=== PATIENT | female | born 1995 | race Caucasian/White ===

== ENCOUNTER 2017-07-07 10:08 | Emergency (ER) | payer SELFPAY ==
[~2017-07-07] VITALS: Ht 165.1 cm; Wt 68.1 kg
[2017-07-07 10:09] VITALS: Ht 165.1 cm; Wt 68.1 kg
[2017-07-07] MEDS ORDERED: IBUPROFEN 600 MG TAB PO ONE (11:30)
[2017-07-07] MEDS ORDERED: HYDROCODONE/APAP (5/325) TAB PO ONE (11:30)
--- NOTE | 2017-07-07 12:16 | RADRPT ---
PROCEDURE: XR Right Ankle CLINICAL INDICATION: Twisted, pain, swelling TECHNIQUE: Standard 3 view radiographs were submitted. COMPARISON: None FINDINGS: Osseous structures: Well mineralized and intact with no fracture or destructive process identified. Joint spaces: Well maintained with no significant erosions or spurring evident. Soft tissues: There is mild soft tissue swelling seen about the lateral malleolus compatible with a sprain. IMPRESSION: Right ankle sprain. Physician Yanely Date Time Electronically viewed and signed by Janak Nathan Physician on 07/07/2017 12:16 RH/
[2017-07-07] MEDS ORDERED: HYDR-906 PO (12:27)
[2017-07-07] MEDS ORDERED: IBUP-1542 PO (12:27)
--- NOTE | 2017-07-07 12:45 | ERD ---
ER Documentation Chief Complaint Date/Time DATE: 07/07/17 TIME: 12:31 Chief Complaint 8/10 r. ankle pain x 1 day S/f at work ROS All systems reviewed and are negative except as per history of present illness. Medications Home Meds Active Scripts Hydrocodone/Acetaminophen ([place] 5-325 Tablet) 1 Each Tablet, 1 EACH PO Q6 for SEVERE PAIN LEVEL 7-10, #14 TAB Prov:BERYL PINEDO DO 07/07/17 Ibuprofen* (Motrin*) 600 Mg Tab, 600 MG PO Q6H Y for PAIN, #30 TAB Prov:BERYL PINEDO DO 07/07/17 Allergies Allergies: Coded Allergies: No Known Allergy (Unverified , 07/07/17) PMhx/Soc Medical and Surgical Hx: pt denies Medical Hx, pt denies Surgical Hx Hx Alcohol Use: No Hx Substance Use: No Hx Tobacco Use: No Smoking Status: Never smoker Physical Exam Vitals Vital Signs Date Time Temp Pulse Resp B/P Pulse Ox O2 Delivery O2 Flow Rate FiO2 07/07/17 10:09 98.4 90 18 121/91 100 Physical Exam Const: [] No distress Head: Atraumatic Ext: No cyanosis, mild lateral right ankle edema, tenderness to around malleolus as well as inferior to the malleolus in the distribution of the anterior talofibular ligament. Pulses and capillary refill within normal limits. No foot tenderness and no injury to the knee peer Neur: Awake and alert Psych: Normal Mood and Affect Results 24 hrs Current Medications Medications (Trade) Dose Ordered Sig/[place] Route PRN Reason Start Time Stop Time Status Last Admin Dose Admin Ibuprofen (Motrin) 600 mg ONCE ONCE PO 07/07/17 11:30 07/07/17 11:31 DC 07/07/17 11:14 Acetaminophen/ Hydrocodone Bitart ([place] (5/325)) 1 tab ONCE ONCE PO 07/07/17 11:30 07/07/17 11:31 DC 07/07/17 11:14 Procedures/MDM Right lateral ankle sprain. Likely anterior talofibular ligament partial tear. Patient was given ibuprofen [place] in the emergency room which helped with her pain greatly. Discharge her with ibuprofen and a few [place] pills. Primary care follow-up in 2-3 days. In the emergency room she was given crutches and Loki wrap was placed. Perform neurovascular assessment after the Loki wrap the patient was neurovascularly intact. Departure Diagnosis: Primary Impression: Right ankle sprain Condition: Stable Patient Instructions: Treating Ankle Sprains Additional Instructions: Call your primary care doctor TOMORROW for an appointment during the next 2-3 days.See the doctor sooner or return here if your condition worsens before your appointment time. BERYL PINEDO DO Jul 07, 2017 12:41
== END 2017-07-07 12:52 | disposition home or self-care (01) ==
LOC: FTE 10:08
DX: S93.401A Sprain of unspecified ligament of right ankle, initial encounter (principal); W18.39XA Other fall on same level, initial encounter; Y92.89 Other specified places as the place of occurrence of the external cause

== ENCOUNTER 2017-12-13 17:42 | Emergency (ER) | END 2017-12-13 21:24 | disposition home or self-care (01) ==

== ENCOUNTER 2018-07-15 22:48 | Inpatient (IN) | END 2018-07-16 20:15 | disposition home or self-care (01) | DRG 561 ==

== ENCOUNTER 2018-09-16 12:22 | Emergency (ER) | END 2018-09-16 14:52 | disposition home or self-care (01) ==